=== PATIENT | female | born 1970 | race Caucasian/White ===

== ENCOUNTER 2022-08-16 14:58 | Emergency (ER) | payer OTHER ==
--- OUTSIDE RECORDS SUMMARY | 2022-08-16 15:02 | XMS REPORT | Continuity of Care Document ---
:[address] [facility] t Address [address] [place] [address] [address] [place] [address] Care Team Providers Name Role Phone Byron Porter DO Primary Care Physician BYRON PORTER Attending Clinician Unavailable ARMANDO Attending Clinician Unavailable Daysi Campos MD Attending Clinician Khushbu Johnson MA Attending Clinician Unavailable BYRON PORTER Admitting Clinician Unavailable ARMANDO Admitting Clinician Unavailable Payers Payer Name Policy Type Policy Number Effective Date Expiration Date Amira leyva AETNA 53 [id number] [facility] AETNA (POS) [id number] 2022 00:00:00 [place] [id number] 2018 [place] (PPO[place] 00:00:00 Problems Condition Condition Condition Status Onset Resolution Last Treating Co mments Source Name Details Category Date Date Treatment Clinician Date Pain of Pain of Problem Active 2021-07 [place] right Right 208 Communi elbow Elbow 00:00: ty joint Joint 00 Hospita l Clinics Chronic Chronic Problem Active [place] gastritis Gastritis 12-21 Comm uni 00:00: ty 00 Hospita l Clinics Dislocatio Dislocatio Problem Active S loree n of n of 12-21 Communi temporoman Temporoman 00:00: ty dibular dibular 00 Hospita joint Joint l Clinics Hyperlipid Hyperlipid Problem Active 2020-07 S wecabrera emia emia 2 Communi 00:00: ty 00 Hospita l Clinics Migraine Migraine Problem Active 2020-07 Sween y 206 Communi 00:00: ty 00 Hospita l Clinics 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 S weeny dibular dibular 2-06 Communi joint Joint 00:00: ty disorder Disorder 00 Hospit a l Clinics Elevated Elevated Problem Active 2020-07 Sween y blood-pres Blood-pres 2 Co mmuni sure sure 00:00: ty reading Reading 00 Hospita without without l diagnosis Diagnosis Clin ics of of hypertensi Hypertensi on on Hormone Hormone Problem Active 2020-07 [place] replacemen Replacemen 08-23 Co mmuni t therapy t Therapy 00:00: ty 00 Hospita l Clinics Hyperlipid Hyperlipid Disease Active 2018-07 M santana mckay emia 08-05 st 00:00: Hospita 00 l [id number] Interstiti Problem Co mmon al [facility] cystitis - [facility] [id number] Irritable Problem Com mon bladder [facility] Allergies, Adverse Reactions, Alerts Allergy Allergy Status Severity Reaction(s) Onset Inactive Treating Comm ents Source Name Type Date Date Clinician Sulfamet Propensi Active Rash 2018-07 Method i hoxazole ty to 08-04 st -Trimeth adverse 00:00: Hospita oprim reaction 00 l s to drug Tramadol Propensi Active GI 2018-07 Method i ty to Intolerance 08-04 st adverse 00:00: Hospita reaction 00 l s to drug sulfamet sulfamet Active Unknown Commo n hoxazole hoxazole [facility] / / - [facility] trimetho trimetho [facility] Bactrim Allergy Active Hives [place] to Communi substanc ty e Hospita l Clinics Tramadol Allergy Active Nausea, [place] to Vomiting Communi substanc ty e Hospita l Clinics tramadol tramadol Active Unknown [facility] Family History Family Member Diagnosis Comments Start Date Stop Date Source Natural brother Hypertension [facility] Natural brother Diabetes [facility] Natural father Heart attack [facility] Natural father Heart failure [facility] Maternal grandfather Heart failure [facility] Maternal grandmother No Known Problems [facility] Natural mother Hypertension [facility] Paternal grandfather Heart failure [facility] Paternal grandmother No Known Problems [facility] Paternal uncle Esophageal cancer [facility] Family member Colon cancer [facility] Family member Stomach cancer [facility] Social History Social Habit Start Date Stop Date Quantity Comments Source History of [facility] - Tobacco Use [facility] Sex Assigned At [facility] Sp mack - [facility] Alcohol intake 2022-04-26 2022-04-26 Ex-drinker [facility] 00:00:00 00:00:00 (finding) Hospital Tobacco use and 2019-06-04 2019-06-04 [facility] non-user Hospital Smoking Status Start Date Stop Date Source Never Smoker [facility] Medications Ordered Filled Start Stop Current Ordering Indication Dosage Frequency Signature Comments Components Source Medication Medication Date Date Medication? Clinician (SIG) Name Name Depo-Medrol Depo-Medrol No 40mg Common (Methylpred (Methylpred 1-17 S pirit nisolone) nisolone) 00:00: - C HI 40mg 40mg [facility] Bupivicaine Bupivicaine No 2.5mg [place] 1-17 Spirit 00:00: - [facility] famotidine Yes Methodi (PEPCID) 40 8-17 st MG tablet 00:00: Hospita 00 l PANTOPRAZOL Yes Method i E 40 MG/100 7-20 st ML, 00:00: Hospita [id number], 00 l MULTI COMPONENT dimethyl Yes INSTILL Method i sulfoxide, 9-[address] bulk, 99.99 00:00: BLADDER Hos cindy % liquid 00 VIA l URETHRAL ROUTE DIRECTED UROGESIC-BL Yes TK 1 T PO M ethodi UE 8-23 Q [address] 81.6-40.8-0 00:00: BLADDER Hos cindy .12 mg 00 PAIN l tablet estradiol 2016-07 Yes NORA 1 Methodi (VIVELLE-DO 2-[address] T) 0.075 00:00: TWICE A Hospit a mg/24 hr 00 WEEK UTD. l sucralfate sucralfate No sucralfate [place] 1 gram 1 gram 1 gram Communi tablet TAKE tablet TAKE tablet ty 1 TABLET BY 1 TABLET BY TAKE 1 Hospita MOUTH TWICE MOUTH TWICE TABLET BY l DAILY DAILY MOUTH Clinics TWICE DAILY Estradiol Estradiol No Estradiol Famotidine Famotidine No Famotidine Pantoprazol Pantoprazol No Pantoprazo e Sodium e Sodium le Sodium clonidine clonidine No clonidine [place] HCl 0.1 mg HCl 0.1 mg HCl 0.1 mg Communi tablet TAKE tablet TAKE tablet ty 1 TABLET BY 1 TABLET BY TAKE 1 Hospita MOUTH TWICE MOUTH TWICE TABLET BY l DAILY DAILY MOUTH Clinic s NEEDED NEEDED TWICE DAILY NEEDED estradiol estradiol No estradiol [place] 0.075 mg/24 0.075 mg/24 0.075 Communi hr hr mg/24 hr ty semiweekly semiweekly semiweekly [facility] transdermal transdermal transderma l patch APPLY patch APPLY l patch Clinics 1 PATCH 1 PATCH APPLY 1 TOPICALLY TOPICALLY PATCH TO THE SKIN TO THE SKIN TOPICALLY 2 TIMES A 2 TIMES A TO THE WEEK WEEK SKIN 2 DIRECTED DIRECTED TIMES A WEEK DIRECTED famotidine famotidine No famotidine [place] 40 mg 40 mg 40 mg Communi tablet TAKE tablet TAKE tablet ty 1 TABLET BY 1 TABLET BY TAKE 1 Hospita MOUTH DAILY MOUTH DAILY TABLET BY l MOUTH Clinics DAILY nitrofurant nitrofurant No nitrofuran [place] oin oin toin Communi monohydrate monohydrate monohydrat ty /macrocryst /macrocryst e/macrocry Hospita als 100 mg als 100 mg stals 100 l capsule capsule mg capsule Cli nics pantoprazol pantoprazol No pantoprazo [place] e 40 mg e 40 mg le 40 mg Commu ni tablet,damián tablet,damián tablet,del ty yed release yed release ayed H ospita TAKE 1 TAKE 1 release l TABLET BY TABLET BY TAKE 1 Cli nics MOUTH DAILY MOUTH DAILY TABLET BY MOUTH DAILY rizatriptan rizatriptan No rizatripta [place] 10 mg 10 mg n 10 mg Communi disintegrat disintegrat disintegra ty ing tablet ing tablet ting Hos cindy DISSOLVE 1 DISSOLVE 1 tablet l TABLET ON TABLET ON DISSOLVE 1 Clinics TOP OF THE TOP OF THE TABLET ON TONGUE TONGUE TOP OF THE DAILY DAILY TONGUE NEEDED NEEDED DAILY NEEDED sucralfate sucralfate No sucralfate [place] 1 gram 1 gram 1 gram Communi tablet TAKE tablet TAKE tablet ty 1 TABLET BY 1 TABLET BY TAKE 1 Hospita MOUTH TWICE MOUTH TWICE TABLET BY l DAILY DAILY MOUTH Clinics TWICE DAILY clonidine clonidine No 1 BID clonidine [place] HCl 0.1 mg HCl 0.1 mg HCl 0.1 mg Communi tablet Take tablet Take tablet ty 1 tablet 1 tablet Take 1 Hospi ta twice a day twice a day tablet l by oral by oral twice a Clinic s route. route. day by oral route. estradiol estradiol No 1patch( Q3.5D estradiol [place] 0.075 mg/24 0.075 mg/24 es) 0.075 Communi hr hr mg/24 hr ty semiweekly semiweekly semiweekly [facility] transdermal transdermal transderma l patch Apply patch Apply l patch [facility] 1 patch 1 patch Apply 1 twice a twice a patch week by week by twice a transdermal transdermal week by route. route. transderma l route. Maxalt-CONSERVATION TECHNICIAN Maxalt-CONSERVATION TECHNICIAN No 1 Maxalt-CONSERVATION TECHNICIAN [place] 10 mg 10 mg 10 mg Communi disintegrat disintegrat disintegra ty ing tablet ing tablet ting Hos cindy Take 1 Take 1 tablet l tablet by tablet by Take 1 Cli nics oral route oral route tablet by as needed. as needed. oral route as needed. clonidine clonidine No clonidine [place] HCl 0.1 mg HCl 0.1 mg HCl 0.1 mg Communi tablet TAKE tablet TAKE tablet ty 1 TABLET BY 1 TABLET BY TAKE 1 Hospita MOUTH TWICE MOUTH TWICE TABLET BY l DAILY DAILY MOUTH Clinic s NEEDED NEEDED TWICE DAILY NEEDED estradiol estradiol No estradiol [place] 0.075 mg/24 0.075 mg/24 0.075 Communi hr hr mg/24 hr ty semiweekly semiweekly semiweekly [facility] transdermal transdermal transderma l patch APPLY patch APPLY l patch Clinics 1 PATCH 1 PATCH APPLY 1 TOPICALLY TOPICALLY PATCH TO THE SKIN TO THE SKIN TOPICALLY 2 TIMES A 2 TIMES A TO THE WEEK WEEK SKIN 2 DIRECTED DIRECTED TIMES A WEEK DIRECTED nitrofurant nitrofurant No nitrofuran [place] oin oin toin Communi monohydrate monohydrate monohydrat ty /macrocryst /macrocryst e/macrocry Hospita als 100 mg als 100 mg stals 100 l capsule capsule mg capsule Cli nics pantoprazol pantoprazol No pantoprazo [place] e 40 mg e 40 mg le 40 mg Commu ni tablet,damián tablet,damián tablet,del ty yed release yed release ayed H ospita TAKE 1 TAKE 1 release l TABLET BY TABLET BY TAKE 1 Cli nics MOUTH DAILY MOUTH DAILY TABLET BY MOUTH DAILY rizatriptan rizatriptan No rizatripta [place] 10 mg 10 mg n 10 mg Communi disintegrat disintegrat disintegra ty ing tablet ing tablet ting Hos cindy DISSOLVE 1 DISSOLVE 1 tablet l TABLET ON TABLET ON DISSOLVE 1 Clinics TOP OF THE TOP OF THE TABLET ON TONGUE TONGUE TOP OF THE DAILY DAILY TONGUE NEEDED NEEDED DAILY NEEDED sucralfate sucralfate No sucralfate [place] 1 gram 1 gram 1 gram Communi tablet TAKE tablet TAKE tablet ty 1 TABLET BY 1 TABLET BY TAKE 1 Hospita MOUTH TWICE MOUTH TWICE TABLET BY l DAILY DAILY MOUTH Clinics TWICE DAILY clonidine clonidine No clonidine [place] HCl 0.1 mg HCl 0.1 mg HCl 0.1 mg Communi tablet TAKE tablet TAKE tablet ty 1 TABLET BY 1 TABLET BY TAKE 1 Hospita MOUTH TWICE MOUTH TWICE TABLET BY l DAILY DAILY MOUTH Clinic s NEEDED NEEDED TWICE DAILY NEEDED estradiol estradiol No estradiol [place] 0.075 mg/24 0.075 mg/24 0.075 Communi hr hr mg/24 hr ty semiweekly semiweekly semiweekly Hospita transdermal transdermal transderma l patch APPLY patch APPLY l patch Clinics 1 PATCH 1 PATCH APPLY 1 TOPICALLY TOPICALLY PATCH TO THE SKIN TO THE SKIN TOPICALLY 2 TIMES A 2 TIMES A TO THE WEEK WEEK SKIN 2 TIMES A WEEK nitrofurant nitrofurant No nitrofuran [place] oin oin toin Communi monohydrate monohydrate monohydrat ty /macrocryst /macrocryst e/macrocry Hospita als 100 mg als 100 mg stals 100 l capsule capsule mg capsule Cli nics pantoprazol pantoprazol No pantoprazo [place] e 40 mg e 40 mg le 40 mg Commu ni tablet,damián tablet,damián tablet,del ty yed release yed release ayed H ospita TAKE 1 TAKE 1 release l TABLET BY TABLET BY TAKE 1 Cli nics MOUTH DAILY MOUTH DAILY TABLET BY MOUTH DAILY prednisone prednisone No prednisone [place] 20 mg 20 mg 20 mg Communi tablet 2 tablet 2 tablet 2 ty tabs PO tabs PO tabs PO Hospit a first day first day first day l then 1 tab then 1 tab then 1 tab Clinics PO qd unitl PO qd unitl PO qd finished, finished, unitl total 5 total 5 finished, days. days. total 5 days. rizatriptan rizatriptan No rizatripta [place] 10 mg 10 mg n 10 mg Communi disintegrat disintegrat disintegra ty ing tablet ing tablet ting Hos cindy DISSOLVE 1 DISSOLVE 1 tablet l TABLET ON TABLET ON DISSOLVE 1 Clinics TOP OF THE TOP OF THE TABLET ON TONGUE TONGUE TOP OF THE DAILY DAILY TONGUE NEEDED NEEDED DAILY NEEDED Immunizations Ordered Immunization Filled Immunization Date Status Commen ts Source Name Name COVID-19 COVID-19 2021-06-04 Completed [place] [facility] ty (SARS-COV-2) (SARS-COV-2) 00:00:00 [facility] linics vaccine, unspecified vaccine, unspecified COVID-19 COVID-19 2021-06-04 Completed [place] Communi ty (SARS-COV-2) (SARS-COV-2) 00:00:00 [facility] linics vaccine, unspecified vaccine, unspecified COVID-19 COVID-19 2021-06-04 Completed [place] Communi ty (SARS-COV-2) (SARS-COV-2) 00:00:00 [facility] linics vaccine, unspecified vaccine, unspecified COVID-19 COVID-19 2021-06-04 Completed [place] Communi ty (SARS-COV-2) (SARS-COV-2) 00:00:00 [facility] linics vaccine, unspecified vaccine, unspecified MODERNA COVID-19 2021-06-04 Completed [facility] t MRNA VACCINATION 00:00:00 [facility] COVID19 COVID-19 2020-09-13 Completed [place] Communi ty (SARS-COV-2) (SARS-COV-2) 00:00:00 [facility] linics vaccine, unspecified vaccine, unspecified COVID-19 COVID-19 2020-09-13 Completed [place] Communi ty (SARS-COV-2) (SARS-COV-2) 00:00:00 [facility] linics vaccine, unspecified vaccine, unspecified COVID-19 COVID-19 2020-09-13 Completed [place] Communi ty (SARS-COV-2) (SARS-COV-2) 00:00:00 [facility] linics vaccine, unspecified vaccine, unspecified COVID-19 COVID-19 2020-09-13 Completed [place] Communi ty (SARS-COV-2) (SARS-COV-2) 00:00:00 [facility] linics vaccine, unspecified vaccine, unspecified MODERNA COVID-19 2020-09-13 Completed [facility] t MRNA VACCINATION 00:00:00 [facility] COVID19 COVID-19 2020-08-16 Completed [place] Communi ty (SARS-COV-2) (SARS-COV-2) 00:00:00 [facility] linics vaccine, unspecified vaccine, unspecified COVID-19 COVID-19 2020-08-16 Completed [place] Communi ty (SARS-COV-2) (SARS-COV-2) 00:00:00 [facility] linics vaccine, unspecified vaccine, unspecified COVID-19 COVID-19 2020-08-16 Completed [place] Communi ty (SARS-COV-2) (SARS-COV-2) 00:00:00 [facility] linics vaccine, unspecified vaccine, unspecified COVID-19 COVID-19 2020-08-16 Completed [place] Communi ty (SARS-COV-2) (SARS-COV-2) 00:00:00 [facility] linics vaccine, unspecified vaccine, unspecified MODERNA COVID-19 2020-08-16 Completed [facility] t MRNA VACCINATION 00:00:00 [facility] Vital Signs Vital Name Observation Time Observation Value Comments Source height 2022-08-03 64 [in_i] [facility] - 09:30:00 [facility] weight 2022-08-03 146.1 [lb_av] [facility] - 09:30:00 [facility] temperature 2022-08-03 97.9 [degF] [facility] - 09:30:00 [facility] bmi 2022-08-03 25.08 kg/m2 [facility] - 09:30:00 [facility] blood pressure 2022-08-03 125 mm[Hg] [facility] - systolic 09:30:00 [facility] blood pressure 2022-08-03 78 mm[Hg] [facility] - diastolic 09:30:00 [facility] BP Diastolic 2022-06-24 64 mm[Hg] [place] [facility] 00:[facility]:00 [facility] Height 2022-06-24 64 [in_i] [place] [facility] 00:00:00 [facility] BMI (Body Mass 2022-06-24 25.2 kg/m2 [place] Commun ity Index) 00:00:00 Hospital Clinic [facility] BP Systolic 2022-06-24 106 mm[Hg] [place] [facility] 00:00:00 [facility] Body Weight 2022-06-24 2352 [oz_av] [place] [facility] 00:00:00 [facility] BP Diastolic 2022-02-23 70 mm[Hg] [place] [facility] y 00:00:00 [facility] Clinic [facility] Height 2022-02-23 64 [in_i] [place] [facility] y 00:00:00 Hospital Clinic s BMI (Body Mass 2022-02-23 24.9 kg/m2 [place] Commun ity Index) 00:00:00 Hospital Clinic s BP Systolic 2022-02-23 124 mm[Hg] [place] [facility] y 00:00:00 [facility] Body Weight 2022-02-23 2320 [oz_av] [place] [facility] y 00:00:00 Hospital Clinic s BP Diastolic 2021-12-21 84 mm[Hg] [place] [facility] y 00:00:00 [facility] Clinic s Height 2021-12-21 64 [in_i] [place] [facility] y 00:00:00 Hospital Clinic s BMI (Body Mass 2021-12-21 24.9 kg/m2 [place] Commun ity Index) 00:00:00 Hospital Clinic s BP Systolic 2021-12-21 130 mm[Hg] [place] [facility] y 00:00:00 Hospital Clinic s Body Weight 2021-12-21 2320 [oz_av] [place] [facility] y 00:00:00 Hospital Clinic s BP Diastolic 2021-06-22 78 mm[Hg] [facility] y 00:00:00 Hospital Clinic s Height 2021-06-22 64 [facility] BMI (Body Mass 2021-06-22 24.2 kg/m2 [facility] Index) 00:00:00 Hospital Clinic s BP Systolic 2021-06-22 124 mm[Hg] [facility] y 00:00:00 Hospital Clinic s Body Weight 2021-06-22 2256 [oz_av] [facility] y 00:00:00 Hospital Clinic s Body height 2022-04-26 162.6 cm patient [facility] 19:46:00 reported Hospital Body weight 2022-04-26 65.772 kg patient [facility] 19:46:00 reported Hospital BMI 2022-04-26 24.89 kg/m2 [facility] 19:46:00 Hospital Procedures Procedure Date / Time Performing Clinician Source Performed SURGICAL PATHOLOGY REQUEST 2022-04-29 21:43:[address] [facility] XR, elbow, 3 or more view 2022-02-23 00:00:00 [facility] Resection of Intestine for [facility] Extraction of [place] [facility] Appendectomy [facility] Oophorectomy [facility] Partial Hysterectomy [facility] Cholecystectomy [facility] Plan of Care Planned Activity Planned Date Details Comments Source Future Scheduled Test 2022-08-03 Hepatitis C [facility] 09:28:51 screening (procedure) [code = 333139539] Future Scheduled Test 2022-08-03 Screening for [facility] 09:28:51 malignant neoplasm of cervix (procedure) [code = 975815644] Future Scheduled Test 2022-08-03 BREAST CANCER [facility] 09:28:51 SCREENING [code = BREAST CANCER SCREENING] Future Scheduled Test 2022-08-03 COLONOSCOPY [facility] 09:28:51 SCREENING [code = COLONOSCOPY SCREENING] Future Scheduled Test 2022-08-03 SHINGLES VACCINES (1 [facility] 09:28:51 of 2) [code = SHINGLES VACCINES (1 of 2)] Future Scheduled Test 2022-08-03 COVID-19 VACCINE (4 [facility] 09:28:51 - Booster for Moderna series) [code = COVID-19 VACCINE (4 - Booster for Moderna series)] Future Scheduled Test 2022-08-03 INFLUENZA VACCINE [facility] 09:28:51 [code = INFLUENZA VACCINE] Diagnostic Test 2022-06-24 CMP, serum or plasma [facility] Pending 00:00:00 [code = CMP, serum Hospital Clinics or plasma] Diagnostic Test 2022-06-24 CBC w/ auto diff [facility] ommunity Pending 00:00:00 [code = CBC w/ auto Hospital Clinics diff] Diagnostic Test 2022-06-24 lipid panel, serum [facility] Pending 00:00:00 [code = lipid panel, Hospita Clinics serum] Diagnostic Test 2022-06-24 vitamin D, [place] Commu nit Pending 00:00:00 25-hydroxy, total, Hospital Clinics serum [code = vitamin D, 25-hydroxy, total, serum] Diagnostic Test 2022-06-24 TSH, serum or plasma [facility] Pending 00:00:00 [code = TSH, serum Hospital Clinics or plasma] Future Appointment 2023-06-24 Byron Porter [facility] 00:00:00 [address]; [facility], [place] [address] Encounters Start End Encounter Admission Attending Care Care Encounter Source Date/Time Date/Time Type Type Clinicians Facility Department ID 2022-08-[address] [facility] [id number] Common 09:28:03 BYRON [id number] 2022-08-03 2022-08-03 CONSULT - [facility] [id number] Common 00:00:00 00:00:00 OFFICE, L3 [facility]pi [facility] 2022-06-25 2022-06-25 Outpatient ERICKSON_R [facility] [id number] [place] 00:00:00 00:00:00 1209 Commun i ty Hospita l Clinics 2022-06-25 2022-06-25 Outpatient ERJONNY_R [facility] [id number] [place] 00:00:00 00:00:00 1213 Commun i ty Hospita l Clinics 2022-06-24 2022-06-24 Outpatient ERICKSON_R [facility] [id number] [place] 00:00:00 00:00:00 1208 Commun i ty Hospita l Clinics 2022-06-24 2022-06-24 Byron [facility] [place] - [place] [id number] [place] 00:00:00 00:00:00 [facility] DO: [address] [facility] [address], HOSPITAL Clinic [place], [place] CL[place]IC, [address] CHARLOTTE , Ph. 2022-05-21 2022-05-21 Outpatient ERICKSON_R [facility] [id number] [place] 00:00:00 00:00:00 1104 Commun i ty Hospita l Clinics 2022-04-29 2022-04-29 Lab Ergun, 1.2.840.1 [id number] Methodi 16:20:00 16:25:[id number] 3.430.2.7 Hospit a .3.604297 l .8 2022-04-29 2022-04-29 Documentat Ergun, 1.2.840.1 [id number] Methodi 00:00:00 00:00:00 ion Gudada 61978.1.[address] 3.430.2.7 Hospit a .3.115803 l .8 2022-04-29 2022-04-29 Outpatient ERGUN, [facility] [id number] [address] [place] 00:00:00 00:00:00 DAYSI [address] 2022-04-27 2022-04-27 Telephone Frioni, 1.2.840.1 [id number] Methodi 00:00:00 00:00:[address] [place] 3.430.2.7 Hosp georgette .3.511811 l .8 2022-04-26 2022-04-26 Telemedici Ergun, 1.2.840.1 [id number] Methodi 15:00:00 15:46:21 ne Kittyhayley [address]41.1.[address] 3.430.2.7 Hospit a .3.249749 l .8 2022-04-26 2022-04-26 Telephone Frioni, 1.2.840.1 [id number] Methodi 00:00:00 00:00:[address] [place] 3.430.2.7 Hosp georgette .3.816418 l .8 2022-04-26 2022-04-26 Outpatient ERGUN, [facility] [id number] [place] 00:00:00 00:00:00 DAYSI [address] 2022-04-16 2022-04-16 Outpatient ERICKSON_R [facility] [id number] [place] 00:00:00 00:00:00 0930 Commun i ty Hospita l Clinics 2022-04-08 2022-04-08 Outpatient ERICKSON_R [facility] [id number] [place] 00:00:00 00:00:00 0922 Commun i ty Hospita l Clinics 2022-03-15 2022-03-15 Outpatient ERICKSON_R [facility] [id number] [place] 00:00:00 00:00:00 0829 Commun i ty Hospita l Clinics 2022-02-23 2022-02-23 Outpatient ERICKSON_R [facility] [id number] [place] 00:00:00 00:00:00 0809 Commun i ty Hospita l Clinics 2022-02-23 2022-02-23 Outpatient Porter, [facility] [id number] 00:00:00 00:00:00 Byron [id number] 2022-02-23 2022-02-23 Byron [facility] [place] - [place] 09 [place] 00:00:00 00:00:00 Ernst [facility] DO: [address] [facility] [place], [place] CLINIC, [address] CHARLOTTE , Ph. 2021-12-21 2021-12-21 Outpatient ERICKSON_R [facility] [id number] [place] 11:43:00 11:43:00 0606 Commun i ty Hospita l [facility] 2021-12-21 2021-12-21 Outpatient Charlotte [facility] [id number] 00:00:00 00:00:00 Byron [id number] Ernst [id number] 2021-12-21 2021-12-21 [facility] [place] [facility] [place] 00:00:00 00:00:00 [facility] DO: [address] [facility] [place] [place] CLINIC, [address] CHARLOTTE , Ph. 2021-06-22 2021-06-22 Outpatient ERICKSON_R [facility] [id number] [place] 12:57:00 12:57:00 1206 Commun i ty Hospita [facility] 2021-06-22 2021-06-22 [facility] [place] [facility] [place] [id number] [place] 00:00:00 00:00:00 [facility] DO: [address] [facility] [place] [place] CLINIC, [address] [place] , Ph. [phone] 2021-06-22 2021-06-22 Outpatient Charlotte [facility] [id number] 00:00:00 00:00:00 Byron [id number] 2021-06-16 2021-06-16 Outpatient [facility] [facility] [id number] 10:07:00 10:07:00 [id number] Results Test Description Test Time Test Comments Results Result Comments Source Surgical pathology request 2022-05-02 23:23:32 Test Item Value Reference Range Interpretation Comme nts Case number (test code = [id number]) [id number] Surgical pathology report (test code = See link below for PDF Lab R eport 9614) Result status (test code = [id number]) This is Final Report for [id number] [facility]
[2022-08-16] MEDS ORDERED: ONDANSETRON 4 MG/2 ML VIAL ONE ×2 (15:29→17:36)
[2022-08-16] MEDS ORDERED: FENTANYL CITR 100 MCG/2 ML ONE ×2 (15:29→17:23)
[2022-08-16] MEDS ORDERED: NA CHLORIDE 0.9% 100 ML ONE (16:43)
[2022-08-16] MEDS ORDERED: propofoL 200 MG/20 ML VIAL IV ONE (16:43)
[2022-08-16] MEDS ORDERED: KETAMINE HCL 500 MG/5 ML VIAL ONE (16:43)
--- NOTE | 2022-08-16 16:48 | RAD REPORT ---
EXAM DESCRIPTION: RAD - Wrist Left 3 View - 08/16/2022 4:41 pm CLINICAL HISTORY: Left wrist pain status post injury FINDINGS: Impacted, moderately to markedly displaced fracture distal radius. Avulsion fracture ulnar styloid process. No dislocation is seen
--- NOTE | 2022-08-16 18:14 | RAD REPORT ---
EXAM DESCRIPTION: RAD - Wrist Left 2 View - 08/16/2022 6:07 pm CLINICAL HISTORY: post reduction COMPARISON: Wrist Left 3 View dated 08/16/2022 FINDINGS/IMPRESSION: Postreduction radiograph demonstrating improvement in alignment of the distal r adial impaction fracture. Less overriding and dorsal tilt is present. Ulnar styloid fracture alignmen t similar.
--- NOTE | 2022-08-16 18:50 | ER ---
Nurse's Notes [facility] Name: Kelsie Rowley Age: 51 yrs Sex: Female : 1970 Arrival Date: 08/16/2022 Time: 14:59 Bed 16 Private MD: Diagnosis: Left distal radius fracture, closed, angulated, reduced, initial visit Presentation: 08/16 15:09 Chief complaint: Patient states: fell on bottom but stuck the left arm out to catch 5 self; obvious deformity. Coronavirus screen: Vaccine status:. Ebola Screen: Patient negative for fever greater than or equal to 101.5 degrees Fahrenheit, and additional compatible Ebola Virus Disease symptoms Patient denies exposure to infectious person. Patient denies travel to an Ebola-affected area in the 21 days before illness onset. Initial Sepsis Screen: Does the patient meet any 2 criteria? No. Patient's initial sepsis screen is negative. Does the patient have a suspected source of infection? No. Patient's initial sepsis screen is negative. Risk Assessment: Do you want to hurt yourself or someone else? Patient reports no desire to harm self or others. 15:09 Method Of Arrival: Ambulatory [facility] 15:09 Acuity: SHAHBAZ 3 [facility] 15:35 Onset of symptoms was August 16, 2022. ap3 Triage Assessment: 15:15 General: Appears distressed, uncomfortable, slender, Behavior is anxious, crying. Pain: 5 Complains of pain in left arm. Musculoskeletal: Bony deformity noted of left arm. 15:35 Injury Description: fall onto tile floor. 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 - Social history:: Smoking status: Patient denies any tobacco usage or history of. Screenin:34 [facility] ED Fall Risk Assessment (Adult) History of falling in the last 3 months, ap3 including since admission Yes- single mechanical fall (1 pt). Abuse screen: Denies threats or abuse. Nutritional screening: No deficits noted. Tuberculosis screening: No symptoms or risk factors identified. Assessment: 15:33 General: Appears uncomfortable, Behavior is crying, restless. Pain: Complains of pain ap3 in left wrist Pain currently is 10 out of 10 on a pain scale. Pain began suddenly. Neuro: Level of Consciousness is awake, alert, obeys commands, Oriented to person, place, time. Cardiovascular: Patient's skin is warm and dry. Respiratory: Airway is patent Respiratory effort is even, unlabored. 16:25 Reassessment: consent for conscious sedation signed and on the chart. db 16:31 Reassessment: Patient appears in no apparent distress at this time. Patient and/or db family updated on plan of care and expected duration. Pain level reassessed. Patient is alert, oriented x 3, equal unlabored respirations, skin warm/dry/pink. left wrist pain after an injury from falling and catching self. Musculoskeletal: Circulation, motion, and sensation intact. Capillary refill < 3 seconds. 16:32 Musculoskeletal: Bony deformity noted of left wrist and left arm. db 17:07 Reassessment: Time out completed with KASIA Hirsch, Christian grey and myself. See paper chart db for conscious sedation flow sheet. 18:05 Reassessment: xray at bedside for post reduction xray. db 18:12 Reassessment: Patient appears in no apparent distress at this time. Patient and/or db family updated on plan of care and expected duration. Pain level reassessed. Patient is alert, oriented x 3, equal unlabored respirations, skin warm/dry/pink. Patient states feeling better. Patient states symptoms have improved. 18:15 Reassessment: patient talking on the phone. in NAD. db Vital Signs: 15:09 BP 135 / 70; Pulse 118; Resp 22; Temp 98.6; Pulse Ox 100% ; Weight 66.68 kg; Height 5 jh5 ft. 4 in. (162.56 cm); Pain 10/10; 17:03 BP 142 / 80; Pulse 89; Resp 16; Temp 98.4(O); Pulse Ox 100% on 2 lpm NC; db 17:10 BP 147 / 99; Pulse 98; Resp 14; Pulse Ox 100% on 2 lpm NC; db 17:12 BP 147 / 99; Pulse 109; Resp 17; Pulse Ox 100% on R/A; ld1 17:20 BP 160 / 80; Pulse 82; Resp 17; Pulse Ox 100% on 2 lpm NC; db 17:30 BP 137 / 82; Pulse 82; Resp 15; Pulse Ox 100% on 2 lpm NC; db 17:45 BP 151 / 81; Pulse 79; Resp 16; Pulse Ox 100% on 2 lpm NC; db 18:00 BP 134 / 80; Pulse 76; Resp 16; Pulse Ox 100% on 2 lpm NC; db 18:15 BP 125 / 76; Pulse 75; Resp 16; Pulse Ox 97% on R/A; db 18:45 BP 138 / 82; Pulse 73; Resp 16; Pulse Ox 99% on R/A; db 15:09 Body Mass Index 25.23 (66.68 kg, 162.56 cm) 5 17:03 pre procedure assessment vitals db 17:10 in procedure vitals db 17:20 post procedure vitals db Vitals: 17:03 Cardiac Rhythm Assessment Regular Sinus rhythm. db [place] Coma Score: 17:47 Eye Response: spontaneous(4). Verbal Response: oriented(5). Motor Response: obeys db commands(6). Total: 15. ED Course: 14:59 Patient arrived in ED. am2 15:00 Torrey Saeed PA is PHCP. [facility] 15:00 Krishan Myers MD is Attending Physician. [facility] 15:15 Triage completed. jh5 15:15 Arm band placed on right wrist. 5 15:20 Nela Gaytan, RN is Primary Nurse. ap3 15:34 Patient has correct armband on for positive identification. Bed in low position. Call ap3 light in reach. Side rails up X2. Adult w/ patient. Pulse ox on. NIBP on. Door closed. Noise minimized. 15:41 Inserted saline lock: 20 gauge in right antecubital area, using aseptic technique. jh5 16:25 Consent for conscious sedation explained by staff, explained by physician, signed by patient. 16:43 Wrist Left (3 View) XRAY In Process Unspecified. EDMS 17:47 Orthoglass splint: Sugar tong splint applied on left arm. Sling applied to left arm. em1 18:08 Wrist Left 2 View In Process Unspecified. EDMS 18:49 Gino Trimble MD is Referral Physician. jmm 19:06 IV discontinued, intact, bleeding controlled, No redness/swelling at site. db 19:07 No provider procedures requiring assistance completed. db Administered Medications: 15:15 CANCELLED (Duplicate Order): Ketamine 1 mg/kg IVP once [facility] 15:33 Drug: fentaNYL (PF) 50 mcg Route: IVP; Site: right antecubital; ap3 17:41 Follow up: Response: No adverse reaction; Pain is decreased db 15:33 Drug: Zofran (Ondansetron) 4 mg Route: IVP; Site: right antecubital; ap3 17:40 Follow up: Response: No adverse reaction db 16:54 Not Given (Duplicate Order): Ketamine 0.5 mg/min IVP at 0.5 mg/min continuous; 100 mg db in 100 ml NS 17:09 Drug: Propofol 0.5 mg/kg {Note: Profol given see paper chart. Total 80 mg IVP db medication pushed by Torrey PEDROZA.} Route: IVP; Site: right antecubital; 17:40 Follow up: Response: No adverse reaction db 17:10 Drug: Ketamine 30 mg {Note: Administered by Torrey PEDROZA via IVP total 30 mg..} Route: IVP; db Site: right antecubital; 19:08 Follow up: Response: No adverse reaction db 17:20 Drug: fentaNYL (PF) 50 mcg Route: IVP; Site: right antecubital; db 19:08 Follow up: Response: No adverse reaction db 17:30 Drug: Zofran (Ondansetron) 4 mg Route: IVP; Site: right antecubital; db 19:08 Follow up: Response: No adverse reaction db Medication: 15:35 VIS not applicable for this client. ap3 Outcome: 18:50 Discharge ordered by . malik 19:06 Discharged to home ambulatory, with family. db 19:06 Condition: stable 19:06 Discharge instructions given to patient, Instructed on discharge instructions, follow up and referral plans. Demonstrated understanding of instructions, follow-up care, Prescriptions given X 2. 19:08 Patient left the ED. db Signatures: Dispatcher [employer] EDMS Torrey Saeed PA PA jmm Martinez, Eric em1 Nela Tellez am2 Nela Gaytan RN RN ap3 Janis Morataya RN RN ld1 Sheila Durbin RN RN jh5 Padilla, Estrella, RN RN db Corrections: (The following items were deleted from the chart) 17:39 17:09 Propofol 0.5 mg/kg IVP in right antecubital db db 17:47 17:03 BP 142 / 80; Pulse 89bpm; Resp 16bpm; Pulse Ox 100% 2 lpm Nasal Cannula; Temp db 98.4F Oral; db
--- NOTE | 2022-08-16 18:50 | EDPHYS ---
Physician Documentation [facility] Name: Kelsie Rowley Age: 51 yrs Sex: Female : 1970 Arrival Date: 08/16/2022 Time: 14:59 Bed 16 Private MD: ED Physician Krishan Myers HPI: 08/16 18:45 This 51 yrs old Female presents to ER via Ambulatory with complaints of Arm Injury. jmm 18:45 The patient or guardian complains of injury, pain. Onset: The symptoms/episode jmm began/occurred acutely, just prior to arrival. Modifying factors: The symptoms are alleviated by nothing. the symptoms are aggravated by movement. Is a 51-year-old female with history of GERD the presents emerged department after fall which occurred just prior to arrival. Patient states that she slipped backwards falling on an outstretched hand. Obvious deformity noted to the left wrist. Denies any change in sensation.. 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 - Social history:: Smoking status: Patient denies any tobacco usage or history of. ROS: 18:45 Constitutional: Negative for fever, chills, and weight loss, Cardiovascular: Negative jmm for chest pain, palpitations, and edema, Respiratory: Negative for shortness of breath, cough, wheezing, and pleuritic chest pain. 18:45 MS/extremity: Positive for injury or acute deformity, pain. 18:45 All other systems are negative. Exam: 18:45 Constitutional: This is a well developed, well nourished patient who is awake, alert, jmm and in no acute distress. Head/Face: atraumatic. Eyes: EOMI, no conjunctival erythema appreciated ENT: Moist Mucus Membranes Neck: Trachea midline, Supple Chest/axilla: Normal chest wall appearance and motion. Cardiovascular: Regular rate and rhythm. No edema appreciated Respiratory: Normal respirations, no respiratory distress appreciated Abdomen/GI: Non distended Back: Normal ROM Skin: General appearance color normal 18:45 Musculoskeletal/extremity: Swelling noted to the left distal radial region, deformity noted. Full radial pulse, sensation intact, full benefit specialist strength, neurovascular intact. 18:45 Skin: Appearance: Color: normal in color. 18:45 Neuro: Motor: is normal. 18:45 Psych: Behavior/mood is pleasant, cooperative. Vital Signs: 15:09 BP 135 / 70; Pulse 118; Resp 22; Temp 98.6; Pulse Ox 100% ; Weight 66.68 kg; Height 5 jh5 ft. 4 in. (162.56 cm); Pain 10/10; 17:03 BP 142 / 80; Pulse 89; Resp 16; Temp 98.4(O); Pulse Ox 100% on 2 lpm NC; db 17:10 BP 147 / 99; Pulse 98; Resp 14; Pulse Ox 100% on 2 lpm NC; db 17:12 BP 147 / 99; Pulse 109; Resp 17; Pulse Ox 100% on R/A; ld1 17:20 BP 160 / 80; Pulse 82; Resp 17; Pulse Ox 100% on 2 lpm NC; db 17:30 BP 137 / 82; Pulse 82; Resp 15; Pulse Ox 100% on 2 lpm NC; db 17:45 BP 151 / 81; Pulse 79; Resp 16; Pulse Ox 100% on 2 lpm NC; db 18:00 BP 134 / 80; Pulse 76; Resp 16; Pulse Ox 100% on 2 lpm NC; db 18:15 BP 125 / 76; Pulse 75; Resp 16; Pulse Ox 97% on R/A; db 18:45 BP 138 / 82; Pulse 73; Resp 16; Pulse Ox 99% on R/A; db 15:09 Body Mass Index 25.23 (66.68 kg, 162.56 cm) [facility] 17:03 pre procedure assessment vitals db 17:10 in procedure vitals db 17:20 post procedure vitals db [place] Coma Score: 17:47 Eye Response: spontaneous(4). Verbal Response: oriented(5). Motor Response: obeys db commands(6). Total: 15. Procedures: 18:47 Splinting: Splint applied to left arm using Sugar-tong Ortho-Glass. applied by myself. malik post reduction film - reveals improved alignment, Examined by me, post splint application: neurovascular intact, 2+ distal pulses palpable, brisk capillary refill noted, Patient tolerated well. Reduction: of the left wrist, using traction, manipulation, Immobilized with Left sugar-tong. Patient tolerated well. Post reduction film - reveals improved alignment. Moderate sedation: Pre-procedure assessment: Monitoring during procedure: traffic monitor specialist, Medications employed: Ketamine, Propofol. MDM: 15:13 Patient medically screened. [facility] 18:48 Data reviewed: vital signs, nurses notes. I considered the following discharge [facility] prescriptions or medication management in the emergency department Medications were administered in the Emergency Department. See MAR. Independent interpretation of the following test(s) in the Emergency Department X-Ray: My interpretation is Distal radial fracture. Historians other than the Patient: Spouse/Significant Other: Significant other. Counseling: I had a detailed discussion with the patient and/or guardian regarding: the historical points, exam findings, and any diagnostic results supporting the discharge/admit diagnosis, radiology results, the need for outpatient follow up, to return to the emergency department if symptoms worsen or persist or if there are any questions or concerns that arise at home. ED course: Patient now has decreased pain after reduction. Advised follow with orthopedics and otherwise given strict return precautions. Patient understood agrees plan of care.. 08/16 15:52 Order name: Wrist Left (3 View) XRAY; Complete Time: 16:49 [facility] 08/16 18:08 Order name: Wrist Left 2 View; Complete Time: 18:16 [facility] 08/16 15:13 Order name: Saline Lock; Complete Time: 15:33 [facility] 08/16 15:13 Order name: Conscious Sedation; Complete Time: 17:57 [facility] 08/16 16:39 Order name: Splint - Sugar Tong - Forearm; Complete Time: 17:47 [facility] 08/16 17:40 Order name: Sling; Complete Time: 17:47 [facility] Administered Medications: 15:15 CANCELLED (Duplicate Order): Ketamine 1 mg/kg IVP once [facility] 15:33 Drug: fentaNYL (PF) 50 mcg Route: IVP; Site: right antecubital; ap3 17:41 Follow up: Response: No adverse reaction; Pain is decreased db 15:33 Drug: Zofran (Ondansetron) 4 mg Route: IVP; Site: right antecubital; ap3 17:40 Follow up: Response: No adverse reaction db 16:54 Not Given (Duplicate Order): Ketamine 0.5 mg/min IVP at 0.5 mg/min continuous; 100 mg db in 100 ml NS 17:09 Drug: Propofol 0.5 mg/kg {Note: Profol given see paper chart. Total 80 mg IVP db medication pushed by Torrey PEDROZA.} Route: IVP; Site: right antecubital; 17:40 Follow up: Response: No adverse reaction db 17:10 Drug: Ketamine 30 mg {Note: Administered by Torrey PEDROZA via IVP total 30 mg..} Route: IVP; db Site: right antecubital; 19:08 Follow up: Response: No adverse reaction db 17:20 Drug: fentaNYL (PF) 50 mcg Route: IVP; Site: right antecubital; db 19:08 Follow up: Response: No adverse reaction db 17:30 Drug: Zofran (Ondansetron) 4 mg Route: IVP; Site: right antecubital; db 19:08 Follow up: Response: No adverse reaction db Disposition: 08/17 07:08 Co-signature as Attending Physician, Krishan Myers MD I reviewed the patient's care rn provided by the Advanced Practice Provider and agree with the diagnosis and treatment plan. Disposition Summary: 08/16/22 18:50 Discharge Ordered Location: Home [facility] Condition: Stable [facility] Diagnosis - Left distal radius fracture, closed, angulated, reduced, initial visit [facility] Followup: [facility] - With: Gino Trimble MD - When: 2 - 3 days - Reason: Recheck today's complaints, Continuance of care, Re-evaluation by your physician Discharge Instructions: - Discharge Summary Sheet [facility] - Radial Fracture [facility] Forms: - Medication Reconciliation Form [facility] - Thank You Letter [facility] - Antibiotic Education [facility] - Prescription Opioid Use [facility] Prescriptions: - Tylenol-Codeine #3 300 mg-30 mg Oral - take 1 tablet by ORAL route every 4 hours As needed; 20 tablet; Refills: 0, [facility] Product Selection Permitted - ondansetron 4 mg Oral tablet,disintegrating - take 1 tablet by ORAL route every 4-6 hours; 30 tablet; Refills: 0, Product [facility] Selection Permitted Signatures: Dispatcher [employer] EDTorrey Jose PA PA jmm Nieto, Roman, MD MD rn Prokisch, Amanda, RN RN ap3 Sheila Durbin RN RN 5 Estrella Padilla RN RN db Corrections: (The following items were deleted from the chart) 08/16 15:15 15:15 Ketamine 1 mg/kg IVP once ordered. malik gan 18:08 17:40 Wrist Left 3 View+RAD.RAD.BRZ ordered. EDMS EDMS
[2022-08-16 20:22] VITALS: TEMP 98.4
[2022-08-16 20:32] VITALS: BP 138/82; O2SAT 99
== END 2022-08-16 19:08 | disposition home or self-care (01) ==
LOC: ER 14:58
DX: S52.502A Unspecified fracture of the lower end of left radius, initial encounter for closed fracture (principal); Z88.1 Allergy status to other antibiotic agents; Z88.5 Allergy status to narcotic agent
CPT/HCPCS: 73110; 73100; 25605; J2704; J3010 ×2; J2405 ×2

== ENCOUNTER 2022-08-25 06:25 | Day surgery (SDC) | payer OTHER ==
[2022-08-23 10:11] LABS: Absolute Lymphocytes (CBC) 1.7 K/uL (0.7-4.9); Hematocrit 38.8 % (36.0-45.0); RBC Red Blood Cell Count 4.31 M/uL (3.86-4.86)
[2022-08-23 10:13] LABS: Protime INR 0.97
[2022-08-23 10:26] LABS: Potassium 3.9 mmol/L (3.5-5.1)
--- NOTE | 2022-08-23 11:32 | RAD REPORT ---
EXAM DESCRIPTION: RAD - Chest Pa And Lat (2 Views) - 08/23/2022 10:16 am CLINICAL HISTORY: Pre op pending ORIF left arm Chest pain. COMPARISON: No comparisons FINDINGS: The lungs are clear. The heart is normal in size. No displaced fractures. IMPRESSION: No acute or concerning finding suspected.
[2022-08-25] MEDS ORDERED: propofoL 200 MG/20 ML VIAL IV ONE (06:46)
[2022-08-25] MEDS ORDERED: LIDOCAINE 2% MPF 5 ML VIAL ONE (06:46)
[2022-08-25] MEDS ORDERED: MIDAZOLAM HCL 2 MG/2 ML INJ ONE (06:46)
[2022-08-25] MEDS ORDERED: FENTANYL CITR 100 MCG/2 ML ONE (06:46)
[2022-08-25] MEDS ORDERED: ONDANSETRON 4 MG/2 ML VIAL ONE (06:47)
[2022-08-25] MEDS ORDERED: CEFAZOLIN SODIUM 1 GM/VIAL ONE (06:51)
[2022-08-25] MEDS ORDERED: Ringers Lactate 1,000 ML IV ONE (06:51)
[2022-08-25] MEDS ORDERED: LIDOCAINE 1% MPF 2 ML AMPULE ONE (06:54)
[2022-08-25] MEDS ORDERED: dexAMETHasone 4 MG/ML VIAL ONE (06:54)
[2022-08-25] MEDS ORDERED: ROPLVACAINE HCL 40 ML ONE (06:55)
[2022-08-25] MEDS ORDERED: KETOROLAC 30 MG/ML INJ ONE (08:20)
[2022-08-25] MEDS ORDERED: Mastisol Adhesive Liq ONE (09:30)
--- NOTE | 2022-08-25 09:34 | P.BOP ---
Preoperative diagnosis: left intraarticular distal radius fracture Postoperative diagnosis: same Primary procedure: open reduction internal fixation three part distal radius fracture Staff Development Educator: NONE,NONE Estimated blood loss: 5 cc Specimen: none Findings: see dictation Anesthesia: General Complications: None Implants: narrow Acumed 3 hole distal radius plate Fluids & blood products: per anesthesia record; TT: 51 mins @ 250 mmHg Transferred to: Recovery Room Condition: Good
--- NOTE | 2022-08-25 10:16 | RAD REPORT ---
EXAM DESCRIPTION: RAD - Wrist Left 2 View - 08/25/2022 9:48 am CLINICAL HISTORY: Radial fracture FINDINGS: Sideplate and screws affix a radial fracture in good alignment. Avulsion fracture ulnar styloid process.
--- NOTE | 2022-08-25 11:28 | RAD REPORT ---
EXAM DESCRIPTION: RAD - Wrist Left 2 View - 08/25/2022 11:08 am CLINICAL HISTORY: Radial fracture FINDINGS: Seven intraoperative fluoroscopic spot images obtained. Fluoroscopy time 0.2 minutes Sideplate and screws affix a radial fracture good alignment. Surgery performed by
[2022-08-25 13:50] VITALS: BP 125/66; TEMP 96.9; O2SAT 100
--- NOTE | 2022-08-26 08:08 | EKG ---
Test Date: 2022-08-23 Test Time: 09:46:35 Budget Controller: DAV MEASUREMENT RESULTS: Intervals: Rate: 72 RI: 160 QRSD: 70 QT: 356 QTc: 389 [place]: P: 68 RI: 160 QRS: 65 T: 51 INTERPRETIVE STATEMENTS: Normal sinus rhythm Normal ECG No previous ECG available for comparison Electronically Signed On 08-26-22 07:59:56 SECURITY AND COMPLIANCE PROJECT MANAGER by Gordon Thompson
== END 2022-08-25 11:04 | disposition home or self-care (01) ==
LOC: OR 06:25
PROVIDERS: ATTEND Orthopaedic Surgery Sports Medicine
PROC: 0PSJ04Z Reposition Left Radius with Internal Fixation Device, Open Approach (ICD-10-PCS; principal; 2022-08-25 08:00)
DX: S52.572A Other intraarticular fracture of lower end of left radius, initial encounter for closed fracture (principal)
CPT/HCPCS: 93005; 85025; 80048; 36415; 85610; 85730; 71046; 73100 ×2; 25609; J2704; J1100; J2001; J2250; J3010; J2795; J7120; J2405; J0690